=== PATIENT | male | born 2000 | race Caucasian/White ===

== ENCOUNTER 2018-10-07 08:13 | Outpatient (CLI) | payer OTHER | END 2018-10-07 11:05 | disposition home or self-care (01) | LOC: LAB 08:13 | DX: R53.1 Weakness (principal); R42 Dizziness and giddiness; R51 Headache ==

== ENCOUNTER 2019-03-10 10:55 | Outpatient (CLI) | payer OTHER | END 2019-03-10 11:50 | disposition home or self-care (01) | LOC: LAB 10:55 | DX: E78.49 Other hyperlipidemia (principal); R42 Dizziness and giddiness; Z11.3 Encounter for screening for infections with a predominantly sexual mode of transmission; Z00.00 Encounter for general adult medical examination without abnormal findings; M54.89 Other dorsalgia ==

== ENCOUNTER → 2019-07-21 13:23 | Outpatient (CLI) | payer OTHER | END | disposition home or self-care (01) | LOC: LAB 13:23 | DX: Z11.3 Encounter for screening for infections with a predominantly sexual mode of transmission (principal) ==

== ENCOUNTER 2019-08-29 10:56 | Outpatient (CLI) | payer OTHER | END 2019-08-29 15:59 | disposition home or self-care (01) | LOC: LAB 10:56 | DX: Z11.3 Encounter for screening for infections with a predominantly sexual mode of transmission (principal) ==

== ENCOUNTER 2019-10-17 09:43 | Outpatient (CLI) | payer OTHER | END 2019-10-17 13:33 | disposition home or self-care (01) | LOC: LAB 09:43 | DX: J11.1 Influenza due to unidentified influenza virus with other respiratory manifestations (principal) ==

== ENCOUNTER 2019-11-26 07:05 | Day surgery (SDC) | payer OTHER | END 2019-11-26 14:10 | disposition home or self-care (01) | LOC: CIR.AMB 07:05 | DX: N47.1 Phimosis (principal) ==

== ENCOUNTER 2019-12-14 06:31 | Outpatient (CLI) | payer OTHER | END 2019-12-14 06:35 | disposition home or self-care (01) | LOC: LAB 06:31 | DX: R42 Dizziness and giddiness (principal); E78.49 Other hyperlipidemia; E55.9 Vitamin D deficiency, unspecified; N39.0 Urinary tract infection, site not specified; Z11.3 Encounter for screening for infections with a predominantly sexual mode of transmission ==

== ENCOUNTER 2020-01-03 08:47 | Outpatient (CLI) | payer OTHER | END 2020-01-03 09:55 | disposition home or self-care (01) | LOC: LAB 08:47 | DX: J11.1 Influenza due to unidentified influenza virus with other respiratory manifestations (principal) ==

== ENCOUNTER 2020-02-21 10:41 | Outpatient (CLI) | payer OTHER | END 2020-02-21 10:47 | disposition home or self-care (01) | LOC: LAB 10:41 | DX: J11.1 Influenza due to unidentified influenza virus with other respiratory manifestations (principal); R05 Cough; R53.81 Other malaise; Z03.818 Encounter for observation for suspected exposure to other biological agents ruled out ==

== ENCOUNTER 2020-04-08 09:30 | Outpatient (CLI) | payer OTHER | END 2020-04-08 15:00 | disposition home or self-care (01) | LOC: LAB 09:30 | PROVIDERS: ATTEND General Practice | DX: J11.1 Influenza due to unidentified influenza virus with other respiratory manifestations (principal); R51 Headache; R53.81 Other malaise; R50.9 Fever, unspecified; Z11.4 Encounter for screening for human immunodeficiency virus [HIV] ==

== ENCOUNTER 2020-05-01 07:00 | Emergency (ER) | payer OTHER ==
[~2020-05-01] VITALS: Ht 175.3 cm; Wt 99.8 kg
== END 2020-05-01 11:12 | disposition home or self-care (01) ==
LOC: ER 07:00
DX: B34.9 Viral infection, unspecified (principal); Z03.818 Encounter for observation for suspected exposure to other biological agents ruled out; R06.02 Shortness of breath; R53.81 Other malaise; R53.83 Other fatigue

== ENCOUNTER → 2020-05-05 06:54 | Outpatient (CLI) | payer OTHER | END | disposition home or self-care (01) | LOC: LAB 06:54 | PROVIDERS: ATTEND Emergency Medicine | DX: R05 Cough (principal); Z20.828 Contact with and (suspected) exposure to other viral communicable diseases; R50.9 Fever, unspecified; R06.2 Wheezing ==

== ENCOUNTER → 2020-05-07 06:39 | Outpatient (CLI) | payer OTHER | END | disposition home or self-care (01) | LOC: LAB 06:39 | PROVIDERS: ATTEND General Practice | DX: R10.84 Generalized abdominal pain (principal); K29.00 Acute gastritis without bleeding; Z12.11 Encounter for screening for malignant neoplasm of colon ==

== ENCOUNTER 2020-05-07 07:40 | Outpatient (CLI) | payer OTHER | END 2020-05-07 07:52 | disposition home or self-care (01) | LOC: SONOGRAMA 07:40 → MAMO-SONO 09:45 | PROVIDERS: ATTEND General Practice | DX: R10.84 Generalized abdominal pain (principal); K29.00 Acute gastritis without bleeding ==

== ENCOUNTER 2020-07-18 10:00 | Outpatient (CLI) | payer OTHER | END 2020-07-18 15:00 | disposition home or self-care (01) | LOC: PPH VACUNA 10:00 | DX: Z23 Encounter for immunization (principal) ==

== ENCOUNTER → 2020-10-28 15:47 | Outpatient (CLI) | payer OTHER | END | disposition home or self-care (01) | LOC: PPH VACUNA 15:47 | DX: Z23 Encounter for immunization (principal) ==

== ENCOUNTER 2021-10-29 10:30 | Emergency (ER) | payer OTHER ==
[~2021-10-29] VITALS: Ht 175.3 cm; Wt 95.3 kg
== END 2021-10-29 15:40 | disposition home or self-care (01) ==
LOC: ER 10:30
DX: B34.9 Viral infection, unspecified (principal); Z20.822 Contact with and (suspected) exposure to COVID-19